=== PATIENT | male | born 1965 | race Two or more races ===

== ENCOUNTER 2024-11-28 08:23 | Outpatient (CLI) | payer BC, SELFPAY ==
--- OUTSIDE RECORDS SUMMARY | 2024-11-28 08:34 | XMS_ITS | Continuity of Care Document ---
Author Organization [facility] Address [address] [place] [address] Phone Care Team Providers Care Hvac Specialist Name Role Phone Ankit Murray MD Unavailable Unavailabl e Allergies, Adverse Reactions, Alerts Substance Reaction Status Criticality No Known Allergies Active No Inform ation Medications Medication Instructions Dosage Effective Dates (start - stop) Status Comments Valtrex 1 gram tablet take 1 tablet by oral route every 12 hours 1000 MG - Active Procedures Procedure Date Office/outpatient visit,[facility] 2022 Advance Directives Directive Yes / No Effective Date File Name No Information Encounters Encounter Description Practice Location Reason(s) For Visit Diagnoses Date Provider Providers Copied on Encounter Office/outpat ient visit,[facility], [address], [place], [place], [id number], [place] tel:[phone] [facility] Right elbow (chief complaint) Strain of fascia of other part of biceps of right arm, sequela Trevor Pham. [address], [place], [place], [address], [place]. tel:[phone] Family History Family Member Type Diagnosis Age At Onset Mother Problem (finding) Depression Father Problem (finding) Alcoholism Immunizations Vaccine Date Status Comments influenza, injectable, quadr ivalent, (3 years or older) administered Source: Other Provid er Payers Payer name Insurance type Covered green party ID Authoryesica tucker(s) Venkatesh [facility] [id number] 26 Social History Type Description Quantity Date Captured Comments Alcohol Use Details Unknown Caffeine Use Details Unknown Tobacco Use Status No Information Smoking Status Never smoker Non-Smoking Tobacco Use Details : No Details Available : No Details Available Sex Male Vital Signs Date / Time: Height Weight BMI Pulse Rate Blood Pressure Temperature Respiratory Rate Body Surface Area Head Circumference Head Circ. Percentile Wt./Lion. Percentile BMI percentile Pulse Ox Inhaled Ox 9:04 AM 71.00 in 120.202 kg (265.00 lbs) 36.9 6 kg/m yarier (2) Chief Complaint And Reason For Visit From encounter dated 07/05/2023 08:40'. Right elbow (chief complaint). Description: Cody presents to the office today on July 05, 2023. He is here because of an injury to the right elbow. Cody explains that he injured his right elbow 6 weeks ago back on May 22, 2023. 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 He was trying to open some windows that were painted and caulked shut. Cody was able to open the first 2 windows, but the third window was very stuck. He was pulling, and he finally felt and heard a pop in his right elbow. Cody applied ice to the elbow. He explains that he applied the ice pack directly to the skin, and he wound up having a first degree burn from the ice pack. Cody reports that he also developed swelling and bruising in the anterior right elbow and forearm area as well, and he noticed a dent in the front of the elbow. The day after the injury, Cody went to an urgent care center. He tells me that nothing was really done at the urgent care center. Eventually, he went to see his chiropractor, Dr. Yobany Swenson [place]. Cody tells me that Dr. Swenson performed an ultrasound, and he noted that the distal biceps tendon was ruptured. He then referred Cody for an MRI of the right elbow, and the MRI was performed at [facility] in [place] on June 28, 2023. The MRI was interpreted as ...1. Complete avulsion of the distal right biceps tendon with severe underlying tendinopathy and 4 cm tendon retraction. 2. Mild lateral epicondylitis without a tear... I reviewed the MRI images myself, and I agree with the interpretation. Cody is here today for further evaluation and treatment of his right elbow. Reason For Referral Reason For Referral No Information History Of Present Illness Encounter Date Complaint History Of Prese nt Illness Right elbow Cody presents to the office today on July 05, 2023. He is here because of an injury to the right elbow. Cody explains that he injured his right elbow 6 weeks ago back on May 22, 2023. 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 He was trying to open some windows that were painted and caulked shut. Cody was able to open the first 2 windows, but the third window was very stuck. He was pulling, and he finally felt and heard a pop in his right elbow. Cody applied ice to the elbow. He explains that he applied the ice pack directly to the skin, and he wound up having a first degree burn from the ice pack. Cody reports that he also developed swelling and bruising in the anterior right elbow and forearm area as well, and he noticed a dent in the front of the elbow. The day after the injury, Cody went to an urgent care center. He tells me that nothing was really done at the urgent care center. Eventually, he went to see his chiropractor, Dr. Yobany Swenson DC. Cody tells me that Dr. Swenson performed an ultrasound, and he noted that the distal biceps tendon was ruptured. He then referred Cody for an MRI of the right elbow, and the MRI was performed at [facility] in [place] on June 28, 2023. The MRI was interpreted as ...1. Complete avulsion of the distal right biceps tendon with severe underlying tendinopathy and 4 cm tendon retraction. 2. Mild lateral epicondylitis without a tear... I reviewed the MRI images myself, and I agree with the interpretation. Cody is here today for further evaluation and treatment of his right elbow. Functional Status Date Functional Assessmen t No Information Instructions Date Instruction Additional Infor mation No Information Assessments Type Assessment Date assessment Strain of fascia of other part o f biceps of right arm, sequela impression I do believe that Do west has a distal biceps tendon rupture of the right upper extremity. However, he is very minimally symptomatic at this time. He rates his current pain a 2 on a scale of 0-10. I suggested that we try a 2 week course of occupational therapy. Cody will follow-up with me 2 weeks from now to recheck the right elbow and upper extremity. At that time, if he seems to be more symptomatic, we will discuss surgical repair of the right distal biceps tendon rupture. However, if he remains minimally symptomatic, and his right upper extremity strength improves, we will continue with nonoperative treatment. In the meantime, Cody may call with any questions or concerns Patient Care Teams Name Effective Dates (start - stop) Status Members No Information
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
--- OUTSIDE RECORDS SUMMARY | 2024-11-28 08:34 | XMS_ITS | Encounter Summary ---
Author Organization [facility] Address [address] [place] [address] Care Team Providers Care Efficiency Miner Blasting Name Role Phone Preet Johnson DO Primary Care Provider [phone] Encounter Details Date Type Department Care Team (Late st Contact Info) Description 07/16/2000 Outpatient Historical [facility] Ruslan Adler MD [address] [place] [address] Other and unspecified noninfectious gastroenteritis and colitis(558.9) (Primary Dx) Social History Tobacco Use Types Packs/Day Years Used Date Smoking Tobacco: Never Assessed Sex and Gender Information Value Date Recorded Sex Assigned at Not on file Legal Sex Male 4:58 AM CRITICAL CARE RN Gender Identity Not on file Sexual Orientation Not on file documented as of this encounter Plan of Treatment Not on file documented as of this encounter Visit Diagnoses Diagnosis Other and unspecified noninfectious gastroenteritis and colitis(558.9)- Primary Other and unspecified noninfectious gastroenteritis and colitis documented in this encounter Care Teams Efficiency Miner Blasting Relationship Specialty Start Date End Date Preet Johnson DO [address] [facility] [address] [place] [address] PCP - General 07/16/00 documented as of this encounter
--- OUTSIDE RECORDS SUMMARY | 2024-11-28 08:34 | XMS_ITS | Clinical Summary ---
Author Organization [facility] on Address [address] [place] [address] Care Team Providers Care Client Technical Support Associate Name Role Phone Preet Johnson DO Primary Care Provider [phone] Allergies Active Allergy Reactions Criticality Noted Date Comments Allerg Xt,D.Farinae-D.Pteronys Other (See Comments) 12/30/2014 Lactose Diarrhea Low 12/30/2014 Medications DULoxetine (CYMBALTA) 30 mg Capsule, Delayed Release(E.C.) Take 1 Capsule by mouth daily. 11/28/2021 Active valACYclovir (VALTREX) 1 gram tablet Take 1,000 mg by mouth daily. Active ypylcfgy-bzk-mu rrous sulfate (One Daily Multi-Vit w-Mineral) 4.5 mg iron Tablet Take 1 Each by mouth daily. Active ASCORBIC ACID, VITAMIN C, ORAL Take by mouth. Active Active Problems No known active problems Social History Tobacco Use Types Packs/Day Years Used Date Smoking Tobacco: Never Assessed Sex and Gender Information Value Date Recorded Sex Assigned at Not on file Legal Sex Male 4:58 AM [employer] Gender Identity Not on file Sexual Orientation Not on file Last Filed Vital Signs Vital Sign Reading Time Taken Comments Blood Pressure 127/84 12/27/2023 8:32 AM CDT Pulse 92 12/27/2023 8:32 AM CDT Temperature 36.8 C (98.2 F) 12/27/2023 8:32 AM CDT Respiratory Rate - - Oxygen Saturation 97% 12/27/2023 8:32 AM CDT Inhaled Oxygen Concentration - - Weight 122.5 kg (270 lb) 12/27/2023 8:32 AM CDT Height 179.1 cm (5' 10.5 ) 12/27/2023 8:32 AM CD T Body Mass Index 38.19 12/27/2023 8:32 AM CDT Plan of Treatment Health Maintenance Due Date Last Done Comments Pre-Diabetes and Diabetes Screening 1964 DTAP/TDAP/TD VACCINES (1 - Tdap) 12/22/1983 HEPATITIS B VACCINES (1 of 3 - 19+ 3-dose series) 12/22/1983 COLORECTAL SCREENING 2009 Colorectal Cancer Screening 2009 FIT-DNA Q 3 years 2009 FIT/FOBT Q 1 year 2009 Flex Sig/CT Colonography Q 5 years 2009 ZOSTER VACCINE (1 of 2) 2014 INFLUENZA VACCINE (#1) 2024 0, 07/08/2019, 07/22/2018, Additional history exists PNEUMOCOCCAL VACCINE 0-64 YEARS Aged Out 08/19/2014 No longer eligible based on patient's age to complete this topic Insurance # [id number] [place] [address] [employer] [id number] [place] [address] Care Teams Client Technical Support Associate Relationship Specialty Start Date End Date Preet Johnson DO [address] [place] [id number] PCP - General 07/16/00
== END 2024-11-28 08:24 | disposition home or self-care (01) ==
LOC: ANHAUDIO 08:23
PROVIDERS: Visit Provider Otolaryngology
DX: H90.6 Mixed conductive and sensorineural hearing loss, bilateral (principal); H69.91 Unspecified Eustachian tube disorder, right ear; J34.89 Other specified disorders of nose and nasal sinuses
CPT/HCPCS: 92557; 92567